=== PATIENT | female | born 1950 | race Caucasian/White ===

== ENCOUNTER 2018-07-05 10:04 | Emergency (ER) | payer OTHER ==
[~2018-07-05] VITALS: Ht 162.6 cm; Wt 82.1 kg
[~2018-07-05 10:04] MED LIST: COL100 PO; LEXAPRO10 MG PO; LOVASTATIN40 MG PO; MAC100 PO; SYSTANE 0.3-0.1 EACH OP; TOP50 PO
[2018-07-05 10:23] VITALS: Ht 162.6 cm; Wt 82.1 kg
[2018-07-05 13:00] VITALS: BP 134/74
== END 2018-07-05 13:00 | disposition home or self-care (01) ==
LOC: ED 10:04
DX: J02.9 Acute pharyngitis, unspecified (principal); M79.621 Pain in right upper arm
CPT/HCPCS: J0561; J1100; Q0092